=== PATIENT | male | born 1975 | race Caucasian/White ===

== ENCOUNTER → 2017-04-15 | Outpatient (CLI) | payer BC ==
[~2017-04-15] MED LIST: BENA1TAB32 PO; FISH OIL GUMMIES PO; FLUT16SP22 NSEACH; LVT.05T PO; MULT-974 PO
--- NOTE | 2017-04-15 10:38 | Diagnostic Imaging Report ---
INDICATION: Preop for hip replacement surgery. TIME OF EXAM: 10:53 a.m. COMPARISON: Comparison is made with prior exam from 08/03/2014. FINDINGS: The heart size is normal. The lungs are clear. No pleural effusion or pneumothorax is identified. The pulmonary vascularity is normal. IMPRESSION: No acute abnormality detected. Dictated by: Dictated on workstation # [id number]
== END ==
LOC: RAD 10:20
DX: Z01.818 Encounter for other preprocedural examination (principal)
CPT/HCPCS: 71046

== ENCOUNTER 2019-10-11 05:41 | Outpatient (RCR) | payer BC ==
[~2019-10-11] VITALS: Ht 185.4 cm; Wt 133.9 kg
[~2019-10-11 05:41] MED LIST changes: +BENA20TA7 PO; +LEVO50TA6 PO; +ROSU20TA32 PO
== END 2019-10-11 11:17 | disposition home or self-care (01) ==
LOC: PREOP 05:41
PROVIDERS: ATTEND Surgery
DX: Z01.812 Encounter for preprocedural laboratory examination (principal); K42.9 Umbilical hernia without obstruction or gangrene; Z20.828 Contact with and (suspected) exposure to other viral communicable diseases
CPT/HCPCS: 87635

== ENCOUNTER 2019-10-14 07:37 | Day surgery (SDC) | payer BC ==
[2019-10-14] VITALS (12 sets, daily range): BP systolic 117–138; BP diastolic 69–96
[~2019-10-14] VITALS: Ht 185.5 cm; Wt 133.9 kg
[2019-10-14] MEDS ORDERED: LACTATED RINGERS 1,000 ML IV PRN (07:56)
[2019-10-14] MEDS ORDERED: ceFAZolin 2 GM IV Premixed 50 ML IV ONE (08:00)
[2019-10-14] MEDS ORDERED: ceFAZolin 2 GM IV Premixed 50 ML ONE (08:04)
--- NOTE | 2019-10-14 08:08 | Progress Note-Pre Operative ---
Pre-Operative Progress Note H&P Reviewed The H&P was reviewed, patient examined and no changes noted. Date Seen by Provider: Oct 14, 2019 Time Seen by Provider: 08:05 Date H&P Reviewed: Oct 14, 2019 Time H&P Reviewed: 08:00 Pre-Operative Diagnosis: Symptomatic umbilical hernia MICHELLE GARZA APRN Oct 14, 2019 08:08
[2019-10-14] MEDS ORDERED: HYDR-4227 PO (08:10)
--- NOTE | 2019-10-14 08:11 | Discharge Inst-Surgical ---
D/C Lap Instructions-KIDO Reconcile Patient Problems Problems Reviewed?: Yes New, Converted, or Re-Newed RX: RX on Chart Follow Up Appt in 2 weeks Activity as tolerated No driving for 24 hours No driving while on pain medications Incentive Spirometry use every 2 hours while awake Regular Diet Symptoms to Report: Fever over 101 degree F, Nausea/Vomiting Infection Signs and Symptoms to report: Increased redness, Foul odor of wound, Increased drainage Bathing instructions: May shower Operative Area Clean/Dry; Keep incision clean/dry If any problems/questions: Contact your physician or go to Emergency Room MICHELLE GARZA APRN Oct 14, 2019 08:11
[2019-10-14] MEDS ORDERED: HYDROcodone/APAP 5 MG/325 MG (LORTAB) TAB PO ONE (08:15)
[2019-10-14] MEDS ORDERED: ONDANSETRON 4 MG/2 ML (SDV) Z0FRAN IVP PRN ×2 (08:15→10:15)
[2019-10-14] MEDS ORDERED: ACETAMINOPHEN 325 MG TABLET PO PRN (08:15)
[2019-10-14] MEDS ORDERED: morphine INJ 10 MG/ML 1ML (SYR OR VIAL) IVP PRN (08:15)
[2019-10-14] MEDS ORDERED: LIDOCAINE PF 2% 5 ML (XYLOCAINE) VIAL ONE (08:44)
[2019-10-14] MEDS ORDERED: ONDANSETRON 4 MG/2 ML (SDV) Z0FRAN ONE (08:44)
[2019-10-14] MEDS ORDERED: proPOfol 200 MG/20 ML (DIPRIVAN) VIAL IV ONE (08:44)
[2019-10-14] MEDS ORDERED: ROCURONIUM 10 MG/ML 5 ML SYRINGE IV ONE (08:44)
[2019-10-14] MEDS ORDERED: SEVOFLURANE (ULTANE) 15 ML INHAL SOLN ONE ×2 (08:44→09:34)
[2019-10-14] MEDS ORDERED: MIDAZOLAM 2 MG/2 ML (VERSED) VIAL ONE (08:45)
[2019-10-14] MEDS ORDERED: fentaNYL INJECTION 100 MCG/2 ML AMP ONE (08:45)
[2019-10-14] MEDS ORDERED: BUP/EPI 0.5% 1:200,000 (SENSORCAINE) 30 ML VIAL ONE (09:16)
[2019-10-14] MEDS ORDERED: NEOSTIGMINE 3 MG/3 ML VIAL ONE (09:48)
[2019-10-14] MEDS ORDERED: GLYCOPYRROLATE 0.2 MG/ML (ROBINUL) 2 ML VIAL ONE (09:48)
--- NOTE | 2019-10-14 09:50 | Progress Note-Post Operative ---
Post-Operative Progess Note Surgeon (s)/Atmospheric Physics Professor (s) Surgeon MARK EMANUEL MD Atmospheric Physics Professor: wayne tuttle [employer]ATCH[employer] TIP Pre-Operative Diagnosis Symptomatic umbilical hernia Post-Operative Diagnosis same, reducible Procedure & Operative Findings Date of Procedure 10/14/19 Procedure Performed/Findings open umbilical hernia repair with mesh. Anesthesia Type get Estimated Blood Loss Estimated blood loss (mL): minimal Specimens/Packing Specimens Removed hernia sac MARK EMANUEL MD Oct 14, 2019 09:50
--- NOTE | 2019-10-14 10:08 | Anesthesia-General Post-Op ---
General Patient Condition Mental Status/LOC: Same as Preop Cardiovascular: Satisfactory Nausea/Vomiting: Absent Respiratory: Satisfactory Pain: Controlled Complications: Absent Post Op Complications Complications None Follow Up Care/Instructions Patient Instructions None needed. Anesthesia/Patient Condition Patient Condition Patient is doing well, no complaints, stable vital signs, no apparent adverse anesthesia problems. No complications reported per nursing. KENYON GÓMEZ CRNA Oct 14, 2019 10:08
[2019-10-14] MEDS ORDERED: morphine INJ 10 MG/ML 1ML (SYR OR VIAL) IVP ONE (10:15)
[2019-10-14] MEDS ORDERED: MEPERIDINE (DEMEROL) INJ 50 MG/ML IVP ONE (10:15)
[2019-10-14] MEDS ORDERED: ACETAMINOPHEN 325 MG TABLET ONE (11:07)
--- NOTE | 2019-10-14 11:15 | NUR ---
C/O H/A. REQUESTED TYLENOL. TYLENOL 650 MG PO GIVEN PER EMAR. Addendum: 10/14/19 at 1116 by HERACLIO GRIFFIN RN Amended: Links added.
--- NOTE | 2019-10-14 12:52 | OPERATIVE REPORT ---
DATE OF SERVICE: 10/14/2019 ATTENDING PRIMARY CARE PHYSICIAN: Dr. Fidel Jackson. PREOPERATIVE DIAGNOSIS: Symptomatic reducible umbilical hernia. POSTOPERATIVE DIAGNOSIS: Symptomatic reducible umbilical hernia. PROCEDURE: Open umbilical hernia repair with mesh. SURGEON: Dr. Emanuel. ATOMIC SPECTROSCOPIST: Aries Daniel APRN ANESTHESIA: General endotracheal. ESTIMATED BLOOD LOSS: Minimal. FINDINGS: Umbilical hernia with greater omentum within the hernia sac. The fascial defect was approximately 1.5 cm in size. DISPOSITION: The patient tolerated the procedure well. INDICATIONS: The patient is a 43-year-old male who has had pain and a palpable bulge in the umbilical region for the past few years; however, over the past few months, he has had an episode of significant amount of pain with associated nausea. He was seen by the physician, found to have an umbilical hernia, which was reducible; however, painful. He states that at times that this would come out and not reduce; however, would spontaneously reduce on its own over time and resting. At this time, he is otherwise doing well, tolerating a regular diet and having normal bowel movements. DESCRIPTION OF PROCEDURE: The patient was brought to the operating room, laid supine on the table. After adequate IV pain and sedative medications and general endotracheal intubation, the abdomen was prepped and draped in standard surgical fashion. A 0.5% Marcaine with epinephrine was then used to anesthetize the supraumbilical rim and a crescent shaped skin incision was made using a 15 blade. The subcutaneous tissue was then dissected using electrocautery until the hernia sac identified. We then completely dissected the hernia sac out using electrocautery to the fascial base. The hernia sac was then opened using Metzenbaum scissors and only omentum was in the hernia sac, which was then completely excised under direct visualization using electrocautery. Good hemostasis was observed. The fascial defect was 1.5 cm in size. A 6.4 round coated polypropylene mesh was then placed into the defect and sutured transvaginally in a concentric manner using interrupted 0 Prolene sutures. Good hemostasis was observed. The subcutaneous tissue was then reapproximated using Vicryl interrupted sutures and the skin was closed using 4-0 Monocryl running subcuticular suture. The wound was then cleaned and covered with Dermabond. The wound was then covered with tonsil sponges followed by 4 x 4 gauze followed by a large Op-Site. The patient tolerated the procedure well. We will start IV and oral pain medication as well as a clear liquid diet. Once he is tolerating clears with good pain control with oral pain medications and ambulating well, we will discharge him home. He will be instructed to do no heavy lifting or exertion for the first two weeks and then slowly incorporate more activity in a gradual stepwise fashion until he was six weeks from the surgery day. Job ID: [id number] DocumentID: [id number] Dictated Date: 10/14/2019 09:57:02 Weigh Tank Operator Date: 10/14/2019 12:51:26 Dictated By: MARK EMANUEL MD MTDD
== END 2019-10-14 12:15 | disposition home or self-care (01) ==
LOC: SDC 07:37
PROVIDERS: ATTEND Surgery
DX: K42.9 Umbilical hernia without obstruction or gangrene (principal); I10 Essential (primary) hypertension; E03.9 Hypothyroidism, unspecified; E78.00 Pure hypercholesterolemia, unspecified; Z80.51 Family history of malignant neoplasm of kidney
CPT/HCPCS: 49585; 87081; C1781

== ENCOUNTER → 2021-07-23 | Outpatient (CLI) | payer BC ==
[~2021-07-23] MED LIST changes: +BENA-3 PO; -BENA20TA7 PO; +HYDR-4227 PO
--- NOTE | 2021-07-23 12:56 | Diagnostic Imaging Report ---
INDICATION: Radiculopathy. FINDINGS: 4 views. Cervical spine shows good alignment. The odontoid intact. Atlantoaxial joints in good alignment. Facets show good alignment. Body height is well maintained. There is rather advanced degenerative disc disease at C3-C4 with hypertrophic endplate changes anteriorly and along the uncovertebral joint. IMPRESSION: Moderate severe degenerative disc disease C3-C4 with hypertrophic changes including uncovertebral joint. Dictated by: Dictated on workstation # [id number]
== END ==
LOC: RAD 10:17
DX: M50.11 Cervical disc disorder with radiculopathy, high cervical region (principal); M89.38 Hypertrophy of bone, other site
CPT/HCPCS: 72040